=== PATIENT | female | born 1990 | race American Indian/Alaskan Native ===

== ENCOUNTER 2017-04-12 17:11 | Emergency (ER) | payer SELFPAY ==
[2017-04-12 20:58] LABS: Basophils % (Auto) 0.7 % (0.0-1.8); Hematocrit 39.5 % (30.3-42.9); Hemoglobin 13.2 gm/dl (10.1-14.3); Mean Corpuscular HGB Conc 34 % (30-34); Mean Corpuscular Hemoglobin 30 pg (28-32); Mean Corpuscular Volume 89 fl (79-97); Platelet Count 220 K/mm3 (140-440); Red Blood Count 4.43 M/mm3 (3.65-5.03); Red Cell Distribution Width 14.9 % (13.2-15.2); White Blood Count 7.6 K/mm3 (4.5-11.0)
[2017-04-12 21:17] LABS: Creatine Kinase MB 1.2 ng/mL (0.0-4.0)
[2017-04-12 21:19] LABS: Anion Gap 17 mmol/L; BUN/Creatinine Ratio 14; Blood Urea Nitrogen 11 mg/dL (7-17); Calcium 9.2 mg/dL (8.4-10.2); Carbon Dioxide 25 mmol/L (22-30); Chloride 103.8 mmol/L (98-107); Creatine Kinase 234 units/L (30-135); Glucose 86 mg/dL (65-100); Potassium 4.4 mmol/L (3.6-5.0); Sodium 141 mmol/L (137-145)
--- NOTE | 2017-04-12 21:24 | Emergency Department Report ---
- General Chief Complaint: Upper Respiratory Infection Stated Complaint: BAD CHEST COLD Time Seen by Provider: 04/12/17 20:26 Source: patient Mode of arrival: Ambulatory Limitations: No Limitations - History of Present Illness Initial Comments: This is a 26-year-old female nontoxic, well nourished in appearance, no acute signs of distress presents to the ED complaining of cough, rhinorrhea, congestion, chest tightness x1 week. Patient stated she only develops chest tightness during cough episode. Patient denies any wheezing, chest pain, shortness of breathe, fever, chills, stiff neck, headache, n/v, numbness, or tingling, or abdominal pain. Patient stated son has similar symptoms and is currently seen in the ED for URI. Patient denies any allergies. PMH includes asthma. MD Complaint: cough, rhinorrhea, nasal congestion, other (chest tightness) -: Gradual, week(s) (1) Severity: mild Severity scale (0 -10): 0 Consistency: constant Improves With: nothing Worsens With: nothing Context: sick contacts (son) Associated Symptoms: rhinorrhea, nasal congestion, cough. denies: fever, chills , myalgias, diaphoresis, headache, sore throat, stiff neck, chest pain, shortness of breath, abdominal pain, nausea, vomiting, diarrhea, dysuria, rash, confusion, right sweats, weight loss, epistaxis, hoarseness, ear pain Treatments Prior to Arrival: none - Related Data Previous Rx's Medication Instructions Recorded Last Taken Type Cephalexin [Keflex] 500 mg PO BID #14 capsule 07/25/14 Unknown Rx Famotidine [Pepcid] 20 mg PO BID #20 tablet 07/25/14 Unknown Rx Azithromycin [Zithromax Z-JOSE] 250 mg PO DAILY #6 tablet 04/12/17 Unknown Rx Benzonatate [Tessalon Perle] 100 mg PO DAILY #15 capsule 04/12/17 Unknown Rx Allergies Allergy/AdvReac Type Severity Reaction Status Date / Time No Known Allergies Allergy Verified 07/25/14 15:19 ED Review of Systems ROS: Stated complaint: BAD CHEST COLD Other details as noted in HPI Constitutional: denies: chills, fever Eyes: denies: eye pain, eye discharge, vision change ENT: denies: ear pain, throat pain Respiratory: cough. denies: shortness of breath, wheezing Cardiovascular: denies: chest pain, palpitations Endocrine: no symptoms reported Gastrointestinal: denies: abdominal pain, nausea, diarrhea Genitourinary: denies: urgency, dysuria, discharge Musculoskeletal: denies: back pain, joint swelling, arthralgia Skin: denies: rash, lesions Neurological: denies: headache, weakness, paresthesias Psychiatric: denies: anxiety, depression Hematological/Lymphatic: denies: easy bleeding, easy bruising ED Past Medical Hx - Past Medical History Previous Medical History?: Yes Hx Asthma: Yes - Surgical History Past Surgical History?: Yes Additional Surgical History: Heart Murmur as child - Social History Smoking Status: Current Every Day Smoker Substance Use Type: None - Medications Home Medications: Home Medications Medication Instructions Recorded Confirmed Last Taken Type Cephalexin [Keflex] 500 mg PO BID #14 capsule 07/25/14 Unknown Rx Famotidine [Pepcid] 20 mg PO BID #20 tablet 07/25/14 Unknown Rx Azithromycin [Zithromax Z-JOSE] 250 mg PO DAILY #6 tablet 04/12/17 Unknown Rx Benzonatate [Tessalon Perle] 100 mg PO DAILY #15 capsule 04/12/17 Unknown Rx ED Physical Exam - General Limitations: No Limitations General appearance: alert, in no apparent distress - Head Head exam: Present: atraumatic, normocephalic, normal inspection - Eye Eye exam: Present: normal appearance, PERRL, EOMI. Absent: scleral icterus, conjunctival injection, nystagmus, periorbital swelling, periorbital tenderness Pupils: Present: normal accommodation - ENT ENT exam: Present: normal exam, normal orophraynx, mucous membranes moist, TM's normal bilaterally, normal external ear exam - Neck Neck exam: Present: normal inspection, full ROM. Absent: tenderness, meningismus, lymphadenopathy, thyromegaly - Respiratory Respiratory exam: Present: normal lung sounds bilaterally. Absent: respiratory distress, wheezes, rales, rhonchi, stridor, chest wall tenderness, accessory muscle use, decreased breath sounds, prolonged expiratory - Cardiovascular Cardiovascular Exam: Present: regular rate, normal rhythm, normal heart sounds. Absent: irregular rhythm, systolic murmur, diastolic murmur, rubs, gallop - GI/Abdominal GI/Abdominal exam: Present: soft, normal bowel sounds. Absent: distended, tenderness, guarding, rebound, rigid, diminished bowel sounds - Rectal Rectal exam: Present: deferred - Extremities Exam Extremities exam: Present: normal inspection, full ROM, normal capillary refill. Absent: tenderness, pedal edema, joint swelling, calf tenderness - Back Exam Back exam: Present: normal inspection, full ROM. Absent: tenderness, CVA tenderness (R), CVA tenderness (L), muscle spasm, paraspinal tenderness, vertebral tenderness, rash noted - Neurological Exam Neurological exam: Present: alert, oriented X3, CN II-XII intact, normal gait, reflexes normal - Psychiatric Psychiatric exam: Present: normal affect, normal mood - Skin Skin exam: Present: warm, dry, intact, normal color. Absent: rash ED Course Vital Signs 04/12/17 17:59 Temperature 98.6 F Pulse Rate 96 H Respiratory 18 Rate Blood Pressure 135/76 O2 Sat by Pulse 100 Oximetry - Reevaluation(s) Reevaluation #1: 04/12/17 21:26 Patient is speaking in full sentences with no signs of distress noted. ED Medical Decision Making - Lab Data Result diagrams: 04/12/17 20:47 04/12/17 20:47 - Medical Decision Making 26-year-old female presents with upper throat infection. CBC, BMP, troponin, cardiac CK has been obtained with old normal limits. EKG has been obtained with normal sinus rhythm. No ST abnormalities. Chest x-ray has been obtained also and dictated per radiologist with normal examination. Patient notified of all the results with no further questions nor per the patient. Patient received Tessalon Perle in ED patient stated Cough has significantly improved and subsided. due tosymptoms lasting for about a month now with positive sick contact patient be treated with Z-Jose. Patient also received Tessalon Perle at discharge. Patient was instructed to follow-up with a primary care doctor in 3- 5 days or if symptoms worsen and continue return to emergency room as soon as possible possible. Patient is hemodynamically stable with stable vital signs. Patient states he is feeling better. At time time of discharge, the patient does not seem toxic or ill in appearance. No acute signs of distress noted. Patient agrees to discharge treatment plan of care. No further questions noted by the patient. Critical care attestation.: If time is entered above; I have spent that time in minutes in the direct care of this critically ill patient, excluding procedure time. ED Disposition Clinical Impression: Upper respiratory infection Qualifiers: URI type: unspecified URI Qualified Code(s): J06.9 - Acute upper respiratory infection, unspecified Disposition: TO HOME OR SELFCARE Is pt being admited?: No Does the pt Need Aspirin: No Condition: Stable Instructions: Upper Respiratory Infection (ED), Benzonatate (By mouth), Azithromycin (By mouth) Additional Instructions: Follow-up with a primary care doctor in 3-5 days or if symptoms worsen and continue return to emergency room as soon as possible possible. Prescriptions: Azithromycin [Zithromax Z-JOSE] 250 mg PO DAILY #6 tablet Benzonatate [Tessalon Perle] 100 mg PO DAILY #15 capsule Referrals: PRIMARY CAREMD [Primary Care Provider] - 3-5 Days MELISSA GARRISON MD [Staff Physician] - 3-5 Days [facility] [Outside] - 3-[address] [facility] [Outside] - 3-5 Days Forms: Work/School Release Form(ED)
[2017-04-12] MEDS ORDERED: TESSALON PERLES PO ONE (21:25)
--- NOTE | 2017-04-12 21:39 | XRay Report ---
FINAL REPORT EXAM: XR CHEST ROUTINE 2V HISTORY: chesrt tightness with cough TECHNIQUE: Chest, PA and lateral PRIORS: None. FINDINGS: The heart size is normal. Mediastinal contours are normal. Pulmonary vasculature is not congested. The lungs are clear. There are no pleural effusion seen. There is no evidence of pneumothorax. IMPRESSION: There is no acute abnormality identified.
[2017-04-13] VITALS: BP 137/57
== END 2017-04-12 22:35 | disposition home or self-care (01) ==
LOC: ED 17:11
DX: J06.9 Acute upper respiratory infection, unspecified (principal); J45.909 Unspecified asthma, uncomplicated; F17.200 Nicotine dependence, unspecified, uncomplicated
CPT/HCPCS: 36415; 71020; 80048; 82550; 82553; 84484; 85025; 93005; 93010